=== PATIENT | female | born 1970 | race Caucasian/White ===

== ENCOUNTER 2016-06-29 20:03 | Emergency (ER) | payer MEDICAID ==
[~2016-06-29] VITALS: Ht 152.4 cm; Wt 52.2 kg
[2016-06-29 20:14] VITALS: BP 136/76
[2016-06-29 21:02] LABS: Urine Bilirubin Negative (Negative); Urine Blood Negative /uL (Negative); Urine Color Yellow (Yellow); Urine Glucose Normal (Normal); Urine Ketone Negative (Negative); Urine Nitrite Negative (Negative); Urine RBC <1 /hpf (0 - 4); Urine Squamous Epithelial Cell FEW /hpf (<5); Urine Urobilinogen Normal (Negative); Urine pH 5.5 (5.0-8.0)
[2016-06-29] MEDS ORDERED: IBUPROFEN 600 MG TAB PO ONE (22:15)
== END 2016-06-29 23:50 | disposition home or self-care (01) ==
LOC: ER 20:06
DX: S20.211A Contusion of right front wall of thorax, initial encounter (principal); V49.59XA Passenger injured in collision with other motor vehicles in traffic accident, initial encounter; Y93.89 Activity, other specified; Y99.8 Other external cause status; Y92.89 Other specified places as the place of occurrence of the external cause
CPT/HCPCS: 71101; 81001; 81025

== ENCOUNTER 2020-10-25 11:00 | Emergency (ER) | payer OTHER, MEDICAID ==
[~2020-10-25] VITALS: Ht 152.4 cm; Wt 54.4 kg
[2020-10-25 12:43] VITALS: BP 117/69
== END 2020-10-25 12:44 | disposition home or self-care (01) ==
LOC: ER 11:00
DX: L02.413 Cutaneous abscess of right upper limb (principal)
CPT/HCPCS: 10060; 73200

== ENCOUNTER 2020-11-01 13:39 | Emergency (ER) | payer OTHER, MEDICAID ==
[~2020-11-01] VITALS: Ht 154.9 cm; Wt 56.7 kg
[2020-11-01 13:53] VITALS: BP 113/68
== END 2020-11-01 14:02 | disposition home or self-care (01) ==
LOC: ER 13:40
DX: Z48.00 Encounter for change or removal of nonsurgical wound dressing (principal)